=== PATIENT | female | born 1960 | race Asian ===

== ENCOUNTER → 2024-04-13 | Outpatient (CLI) | payer OTHER, SELFPAY ==
[2024-04-13 11:08] LABS: Alanine Aminotransferase 23 U/L (10-49); Albumin, Serum 4.6 gm/dL (3.4-4.8); Alkaline Phosphatase 85 U/L (46-116); Anion Gap 3 (7-16); Aspartate Amino Transferase 19 U/L (0-34); BUN/Creatinine Ratio 21 Ratio (12-20); Bilirubin,Direct 0.2 mg/dL (0.0-0.3); Bilirubin,Total 0.7 mg/dL (0.3-1.2); Blood Urea Nitrogen 15 mg/dL (9-23); Calcium 9.8 mg/dL (8.3-10.6); Carbon Dioxide 29.3 mMol/L (20.0-31.0); Cardiac Risk Estimate 2.7 RATIO (3.7-5.6); Chloride 105 mMol/L (98-107); Cholesterol 152 mg/dL (132-200); Creatinine (Component) 0.7 mg/dL (0.6-1.3); Glucose 104 mg/dL (74-106); HDL Cholesterol 57 mg/dL (40-60); LDL Cholesterol,Calculated 77 mg/dL (0-130); Osmolality,Calculated 274 (275-295); Phosphorous 3.6 mg/dL (2.4-5.1); Potassium 4.2 mMol/L (3.4-5.1); Sodium 137 mMol/L (136-145); Total Protein 7.5 gm/dL (5.7-8.2); Triglycerides 91 mg/dL (30-150); eGFR > 60 See Note
== END | disposition home or self-care (01) ==
PROVIDERS: PCP Internal Medicine; Referring Provider Internal Medicine; Visit Provider Internal Medicine
DX: I10 Essential (primary) hypertension (principal); E78.5 Hyperlipidemia, unspecified
CPT/HCPCS: 36415; 80048; 80061; 80076; 84100

== ENCOUNTER → 2024-05-04 | Outpatient (BNVA) | payer OTHER, SELFPAY | END | disposition home or self-care (01) | PROVIDERS: PCP Internal Medicine; Referring Provider Internal Medicine; Visit Provider Urology | DX: N20.0 Calculus of kidney (principal); N28.1 Cyst of kidney, acquired; Z46.6 Encounter for fitting and adjustment of urinary device | CPT/HCPCS: 99212; G0463 ==

== ENCOUNTER → 2024-09-13 | Outpatient (CLI) | payer BC, SELFPAY ==
[2024-09-13 10:57] LABS: Collection Type, Urine Clean Catch
[2024-09-13 11:32] LABS: Basophils # (Auto) 0.1 Thou/mm3 (0.0-0.2); Basophils % (Auto) 1 % (0-2.5); Eosinophils # (Auto) 0.1 Thou/mm3 (0.0-0.5); Eosinophils % (Auto) 2 % (0-10); Hematocrit 41.6 % (36.0-46.0); Hemoglobin 13.7 g/dL (12.0-16.0); Immature Granulocytes % (Auto) 0 % (0-0); Immature Granulocytes Auto 0.01 Thou/mm3 (0.00-0.00); Lymphocytes # (Auto) 1.8 Thou/mm3 (1.0-4.8); Lymphocytes % (Auto) 32 % (10-50); Mean Corpuscular HGB Conc 32.9 g/dl (31.0-37.0); Mean Corpuscular Hemoglobin 29.5 pg (25.0-35.0); Mean Corpuscular Volume 90 fL (80-100); Monocytes # (Auto) 0.5 Thou/mm3 (0.0-0.8); Monocytes % (Auto) 8 % (0-12); Neutrophils # (Auto) 3.2 Thou/mm3 (1.8-7.7); Neutrophils % (Auto) 57 % (37-80); Nucleated Red Blood Cell % 0 /100 WBC (0); Platelet Count 333 Thou/mm3 (140-440); RDW Standard Deviation 42.2 fL (36.4-46.3); Red Blood Count 4.65 Miln/mm3 (4.00-5.20); White Blood Count 5.6 Thou/mm3 (3.6-11.0)
[2024-09-13 11:37] LABS: Bilirubin,Urine Negative (Negative); Blood,Urine Trace (Negative); Clarity,Urine Clear (Clear/Hazy); Color,Urine Lt-Yellow (Lt Yel-Yel); Glucose, Urine Negative (Negative); Ketones,Urine Negative (Negative); Leukocyte Esterase,Urine Positive (Negative); Nitrite,Urine Negative (Negative); PH,Urine 6.5 (5.0-7.0); Protein,Urine Negative (Neg - Trace); RBC,Urine 5 /hpf (0-3); Specific Gravity,Urine 1.016 (1.001-1.035); Squamous Epithelial Cell,Urine 3 /hpf (0-5); Urobilinogen,Urine Negative mg/dL (0.0-1.0); WBC,Urine 6 /hpf (0-5)
[2024-09-13 11:42] LABS: Glucose Estimated Average 123 mg/dL (80-131); Hemoglobin A1C 5.9 % Hgb (4.8-6.0)
[2024-09-13 11:58] LABS: Alanine Aminotransferase 19 U/L (10-49); Albumin, Serum 4.5 gm/dL (3.4-4.8); Alkaline Phosphatase 81 U/L (46-116); Anion Gap 6 (7-16); Aspartate Amino Transferase 18 U/L (0-34); BUN/Creatinine Ratio 16 Ratio (12-20); Bilirubin,Direct 0.2 mg/dL (0.0-0.3); Bilirubin,Total 0.7 mg/dL (0.3-1.2); Blood Urea Nitrogen 13 mg/dL (9-23); Calcium 9.6 mg/dL (8.3-10.6); Carbon Dioxide 28.9 mMol/L (20.0-31.0); Chloride 105 mMol/L (98-107); Cholesterol 169 mg/dL (132-200); Creatinine (Component) 0.8 mg/dL (0.6-1.3); Glucose 107 mg/dL (74-106); HDL Cholesterol 56 mg/dL (40-60); LDL Cholesterol,Calculated 80 mg/dL (0-130); Osmolality,Calculated 279 (275-295); Phosphorous 3.8 mg/dL (2.4-5.1); Potassium 4.3 mMol/L (3.4-5.1); Sodium 140 mMol/L (136-145); Total Protein 7.5 gm/dL (5.7-8.2); Triglycerides 164 mg/dL (30-150); eGFR > 60 See Note
== END | disposition home or self-care (01) ==
LOC: COPL 10:15
PROVIDERS: PCP Internal Medicine; Referring Provider Internal Medicine; Visit Provider Internal Medicine
DX: N39.0 Urinary tract infection, site not specified (principal); I10 Essential (primary) hypertension; E78.5 Hyperlipidemia, unspecified; R73.03 Prediabetes
CPT/HCPCS: 36415; 80048; 80061; 80069; 80076; 81001; 83036; 84100; 85025

== ENCOUNTER → 2024-12-15 | Outpatient (CLI) | payer BC, SELFPAY ==
--- NOTE | 2024-12-15 13:00 | XR_ITS ---
Examination: Screening digital mammography, bilateral Computer aided detection 3-D breast Tomosynthesis, bilateral Date and time of exam: December 15, 2024 1317 hours Compared to mammograms dating to April 03, 2005 Indication: Screening Technique: Nonmagnified MLO, CC views of the breasts to been obtained, reconstructed from 3-D Tomosynthesis images. R2 computer aided detection program utilized for evaluation of suspicious masses and/or abnormal calcifications. 3-D Tomosynthesis images obtained. Findings: The breasts are heterogeneously dense, which may obscure small masses 5 mm nodule upper outer left breast 5 mm nodule inner upper right breast Impression: BI-RADS Category 2: Benign findings Recommend follow-up spot tomographic films 5 mm nodule upper outer left breast and 5 mm nodule inner upper right breast as well as bilateral breast sonography to complete the workup
--- NOTE | 2024-12-15 13:15 | XR_ITS ---
Examination: Bone densitometry Date and time of exam:December 15, 2024 1335 hours INDICATIONS: Hysterectomy age 34 vitamin D 2 weeks Technique: Lumbar spine and hip total bone mineralization values of an calculated. Peak reference and age match control results have been displayed. Findings: Lumbar spine total bone mineralization is1.064 gm/cm2. This is 0.2 standard deviations above peak reference. This is 1.8 standard deviations above age-matched controls. Hip total bone mineralization is 0.821 gm/cm2 This is 1.0 standard deviations below peak reference. This is 0.2 standard deviations above age-matched controls Impression: There is normal mineralization based on lumbar spine measurements. There is osteopenia based on hip measurements Lumbar mineralization is decreased 4.1% compared with February 11, 2016 Hip mineralization is decreased 6.4% compared with 02/11/2016
== END | disposition home or self-care (01) ==
PROVIDERS: PCP Internal Medicine; Referring Provider Internal Medicine; Visit Provider Internal Medicine
DX: Z12.31 Encounter for screening mammogram for malignant neoplasm of breast (principal); R92.323 Mammographic fibroglandular density, bilateral breasts; N63.21 Unspecified lump in the left breast, upper outer quadrant; N63.12 Unspecified lump in the right breast, upper inner quadrant; M85.89 Other specified disorders of bone density and structure, multiple sites
CPT/HCPCS: 77063; 77067; 77080

== ENCOUNTER → 2025-01-10 | Outpatient (CLI) | payer BC, SELFPAY ==
--- NOTE | 2025-01-10 13:00 | XR_ITS ---
Examination: Breast ultrasound complete, bilateral Date and time of exam: January 10, 2025 1337 hours INDICATIONS: Mammogram December 15, 2024 5 mm nodule upper left breast 5 mm nodule inner upper right breast Technique: Real-time grayscale ultrasonographic imaging bilateral breasts, including all 4 quadrants as well as nipple retroareolar and axillary regions. Findings: Sonographic images right breast 12:00 nodule lobular margins 6 x 5 mm 7:00 nodule lobular margins 10 x 9 mm Sonographic images left breast No cystic or solid mass IMPRESSION: BI-RADS Category 3: Probably benign findings. Recommend 1 additional 6 month right breast sonogram follow-up to document stability of right breast nodules described above
--- NOTE | 2025-01-10 14:15 | XR_ITS ---
Examination: Diagnostic digital mammography, bilateral Computer aided detection 3-D breast Tomosynthesis, bilateral Date and time of exam: January 10, 2025 1401 hours INDICATIONS: Mammogram December 15, 2024 5 mm nodule upper outer left breast 5 mm nodule inner upper right breast Technique: Nonmagnified MLO, CC views of the breasts to been obtained, reconstructed from 3-D Tomosynthesis images. R2 computer aided detection program utilized for evaluation of suspicious masses and/or abnormal calcifications. 3-D Tomosynthesis images obtained. Findings: The breasts are heterogeneously dense, which may obscure small masses Circumscribed nodule 12:00 position right breast 6 mm No suspicious nodule confirm left breast on the spot compression views Impression: BI-RADS Category 3: Probably benign findings One additional 6 month right mammogram follow-up is needed to document stability of 12:00 nodule right breast Please see the right and left breast sonogram report and recommendations today.
== END | disposition home or self-care (01) ==
PROVIDERS: PCP Internal Medicine; Referring Provider Internal Medicine; Visit Provider Internal Medicine
DX: R92.333 Mammographic heterogeneous density, bilateral breasts (principal); N63.15 Unspecified lump in the right breast, overlapping quadrants; N63.13 Unspecified lump in the right breast, lower outer quadrant
CPT/HCPCS: 76641; 77062; 77066; G0279

== ENCOUNTER 2025-05-05 05:22 | Emergency (ER) | payer BC, SELFPAY ==
[2025-05-05 05:22] VITALS: BMI 29.0
[2025-05-05 05:29] VITALS: BP 191/81; PULSE 95; RESP 18; TEMP 36.9; O2SAT 97
--- NOTE | 2025-05-05 05:32 | XR_ITS ---
Examination: CT abdomen and pelvis without contrast. Coronal 3-D reconstructions. Sagittal 2-D reconstructions. Date and time of exam: May 05, 2025, 0702 hours INDICATIONS: Bilateral flank pain urinary retention today, history kidney stones COMPARISON: 02/15/2023 CTDI: vol (mGy): 9.67 DLP: (mGycm): 546 Technique: Axial images of the abdomen have been obtained, 3 mm slice thickness Intravenous contrast material has not been administered. Low dose protocols were performed. One or more of the following dose reduction techniques were used; automated exposure control, adjustment of the mA and/or KV according to patient size, use of iterative reconstruction technique. 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
--- NOTE | 2025-05-05 05:32 | PD.EDRME ---
Rapid Medical Screening Exam E Arrival date/time: 05/05/25 05:22 65F with history of kidney stones presents to ED with 2 days of dysuria and 1 day of urinary retention. Patient was here 2 years ago with similar episode and the retention was due to kidney stones. Patient states this feels the same. Chief Complaint: Urogenital-Female Vital signs: Vital Signs Temperature 98.4 F 05/05/25 05:29 Pulse Rate 95 05/05/25 05:29 Respiratory Rate 18 05/05/25 05:29 Blood Pressure 191/81 H 05/05/25 05:29 Pulse Oximetry (%) 97 05/05/25 05:29 Oxygen Delivery Method Room Air 05/05/25 05:29 Exam: Very uncomfortable Clinical Impression: kidney stone vs UTI/pyelo vs constipation vs bladder/pelvic mass vs urinary retention
[2025-05-05] MEDS: TAMSULOSIN HCL 0.4 MG CAPSULE PO (06:00)
[2025-05-05 06:03] VITALS: BP 153/78
[2025-05-05 06:06] LABS: Collection Type, Urine Catheter
[2025-05-05 06:10] LABS: Basophils # (Auto) 0.1 Thou/mm3 (0.0-0.2); Basophils % (Auto) 1 % (0-2.5); Eosinophils # (Auto) 0.1 Thou/mm3 (0.0-0.5); Eosinophils % (Auto) 1 % (0-10); Hematocrit 38.9 % (36.0-46.0); Hemoglobin 13.0 g/dL (12.0-16.0); Immature Granulocytes Auto 0.02 Thou/mm3 (0.00-0.00); Lymphocytes # (Auto) 1.3 Thou/mm3 (1.0-4.8); Lymphocytes % (Auto) 18 % (10-50); Mean Corpuscular HGB Conc 33.4 g/dl (31.0-37.0); Mean Corpuscular Hemoglobin 30.0 pg (25.0-35.0); Mean Corpuscular Volume 90 fL (80-100); Monocytes # (Auto) 0.4 Thou/mm3 (0.0-0.8); Monocytes % (Auto) 5 % (0-12); Neutrophils # (Auto) 5.7 Thou/mm3 (1.8-7.7); Neutrophils % (Auto) 75 % (37-80); Nucleated Red Blood Cell # 0.00 Thou/mm3 (0.00-0.00); Nucleated Red Blood Cell % 0 /100 WBC (0); Platelet Count 282 Thou/mm3 (140-440); RDW Standard Deviation 41.3 fL (36.4-46.3); Red Blood Count 4.34 Miln/mm3 (4.00-5.20); White Blood Count 7.6 Thou/mm3 (3.6-11.0)
[2025-05-05 06:13] LABS: Bilirubin,Urine Negative (Negative); Blood,Urine Trace (Negative); Clarity,Urine Clear (Clear/Hazy); Color,Urine Colorless (Lt Yel-Yel); Culture Indicated,Urine Not Indicated; Glucose, Urine Negative (Negative); Ketones,Urine Negative (Negative); Leukocyte Esterase,Urine Negative (Negative); Nitrite,Urine Negative (Negative); PH,Urine 7.0 (5.0-7.0); Protein,Urine Negative (Neg - Trace); RBC,Urine 2 /hpf (0-3); Specific Gravity,Urine 1.006 (1.001-1.035); Squamous Epithelial Cell,Urine < 1 /hpf (0-5); Urobilinogen,Urine Negative mg/dL (0.0-1.0); WBC,Urine < 1 /hpf (0-5)
[2025-05-05 06:19] LABS: Amphetamine/Methamp Scrn,U Negative (Negative); Barbiturate Screen,Urine Negative (Negative); Benzodiazepines Screen,Urine Negative (Negative); Benzoylecgonine Screen, Ur Negative (Negative); Fentanyl Screen,Urine Negative (Negative); Opiate Screen,Urine Negative (Negative); THC Screen,Urine Negative (Negative)
--- NOTE | 2025-05-05 06:21 | PD.EDFMALE ---
ED Female Urogenital RME/HPI General Chief complaint: Urogenital-Female Stated complaint: URINE RETENTION Time Seen by Provider: 05/05/25 06:19 Arrival date/time: 05/05/25 05:22 Limitations: no limitations RME / HPI RME / HPI Narrative: 05/05/25 05:22 65F with history of kidney stones presents to ED with 2 days of dysuria and 1 day of urinary retention. Patient was here 2 years ago with similar episode and the retention was due to kidney stones. Patient states this feels the same. no hx of Dm. Admits in the past was aware of her 5 mm stone on the right side but states never followed up for lithotripsy or procedure from 2 years ago. No fever at this time. Exam: Very uncomfortable Impression: kidney stone vs UTI/pyelo vs constipation vs bladder/pelvic mass vs urinary retention Related Data Home Medications ?Medication ?Instructions ?Recorded ?Confirmed tamsulosin 0.4 mg capsule 0.4 mg PO QHS 02/18/23 05/04/24 amlodipine 5 mg tablet 5 mg PO QDAY 05/04/24 05/04/24 simvastatin 20 mg tablet 20 mg PO QPM 05/04/24 05/04/24 Previous Rx's ?Medication ?Instructions ?Recorded ciprofloxacin HCl 500 mg tablet 500 mg PO Q12H 10 days #20 tabs 05/05/25 (Cipro) tamsulosin 0.4 mg capsule 0.4 mg PO QDAY #30 caps 05/05/25 Allergies Allergy/AdvReac Type Severity Reaction Status Date / Time No Known Allergies Allergy Verified 05/05/25 05:22 Review of Systems Review of Systems Systems Reviewed: All systems reviewed, normal except as documented Constitutional Constitutional: Denies fever(s) Gastrointestinal Gastrointestinal: Reports as per HPI Genitourinary Genitourinary: Reports as per HPI ED Exam General Limitations: Present no limitations General appearance: Present alert and in no apparent distress Eye Eye exam: Present normal appearance, PERRL and EOMI Respiratory Respiratory exam: Present normal lung sounds bilaterally Cardiovascular Cardiovascular exam: Present regular rate, normal rhythm and normal heart sounds Abdominal Exam Abdominal exam: Present soft, tenderness (Suprapubic) and normal bowel sounds Extremities Exam Extremities exam: Present normal inspection and full ROM Back Exam Back exam: Present normal inspection and full ROM Psychiatric Psychiatric exam: Present normal affect and normal mood Skin Skin exam: Present warm, dry, intact and normal color Course Quality Measures none Orders Category Date Time Status Catheter [Urinary Catheter] QS Care 05/05/25 05:29 Completed Dickens to Leg Bag Routine Care 05/05/25 05:[address] abdomen pelvis wo con Stat Exams 05/05/25 05:32 Completed CBC Stat Lab 05/05/25 05:50 Completed CMP [Comprehensive Metabolic Panel] Stat Lab 05/05/25 05:50 Completed Drug Screen,Urine Stat Lab 05/05/25 05:43 Completed Urinalysis, C/S if Indicated Stat Lab 05/05/25 05:43 Completed Tamsulosin HCl [Flomax] Med 05/05/25 05:32 Discontinued 0.4 mg PO X1 ONE cefTRIAXone [Rocephin] 1,000 mg Med 05/05/25 07:41 Discontinued Lidocaine 1% Pf Vial 5ml [Xylocaine 1% 5 ml] 2.1 ml IM X1 Vital Signs Vital signs: Vital Signs Temperature 98.4 F 05/05/25 05:29 Pulse Rate 95 05/05/25 05:29 Respiratory Rate 18 05/05/25 05:29 Blood Pressure 191/81 H 05/05/25 05:29 Pulse Oximetry (%) 97 05/05/25 05:29 Oxygen Delivery Method Room Air 05/05/25 05:29 Urogenital - Female MDM Narrative MDM Narrative:: 65-year-old female with history of recurrent urinary retention episodes was lost to follow-up for urology. Today's workup shows bilateral stones will treat with ABX and Flomax. Opted to leave urinary catheter in advised follow-up with PCP for removal and referral furl back to urology return to ER symptoms worsen Patient data External records reviewed:: [facility] previous records Clinical information provided by:: patient and family Social determinants that could affect healthcare access:: other (specify) Patient has the following chronic illnesses:: History of kidney stones How is presenting disease/condition affected by chronic disease/condition?: caused by Evaluation data The following diagnostics were reviewed and interpreted by me:: lab results and radiology exam(s) Lab and/or radiology exams considered but not ordered:: All imaging considered was ordered chest x-ray not warranted given complaint of urinary retention Interpretation Summary: CBC, CMP, UA all within normal limits except UA does show hematuria consistent with stone findings no obvious UTI however will treat for such CT shows same 5 mm stone in the right kidney compared to 2 years ago and 1 mm stone on the left side however no hydro or bladder masses Medications / Prescriptions Medications or Prescriptions considered but not ordered:: narcotics were considered Medication administrations:: Medication Administration History Discontinued Medications Ceftriaxone Sodium 1,000 mg/ (Lidocaine HCl 2.1 ml) 0 mg IM X1 ONE Stop: 05/05/25 07:42 Last Admin: 05/05/25 07:51 Dose: 1,000 mg Documented By: LT Tamsulosin HCl (Tamsulosin Hcl 0.4 Mg Capsule) 0.4 mg PO X1 ONE Stop: 05/05/25 05:33 Last Admin: 05/05/25 06:00 Dose: 0.4 mg Documented By: IRMA see above Consultations Consultation(s) initiated? (list below): No Diagnosis Urogenital Female Differential Diagnosis: urinary tract infection and other (Pelvic mass, interstitial cystitis, pyelonephritis, kidney stone.) Most likely diagnosis given after review of the tests above:: Urinary retention UTI Undescended left stone Admission Indicated Admission indicated?: not indicated Admission Request Was there a request for admission?: No Disposition Plan Disposition Plan: Discharge Discharge Attestation Discharge Attestation: The patient and all family members were given an opportunity to ask questions and understood the discharge instructions. Discharge instructions specifically effects, indications for sooner follow up or return to the emergency department, and the expected course of current diagnosis. Patient condition: Stable Discharge Plan Plan Patient Disposition: HOME (Self Care) Discharge Disposition comment: fu with pcp in 2-3days Prescriptions/Referrals Prescriptions/Med Rec: New ciprofloxacin HCl [Cipro] 500 mg tablet 500 mg PO Q12H 10 Days Qty: 20 0RF tamsulosin 0.4 mg capsule 0.4 mg PO QDAY Qty: 30 0RF No Action tamsulosin 0.4 mg capsule 0.4 mg PO QHS amlodipine 5 mg tablet 5 mg PO QDAY simvastatin 20 mg tablet 20 mg PO QPM Problem List Clinical Impression: Urinary tract infection, Acute on chronic urinary retention, Bilateral kidney stones Patient/Caregiver Discharge Instructions Education Materials: ED Kidney Stone Undescended No ..., ED Urinary Retention, Female Print Language: Divehi Stand Alone Forms: [place] Award Info., Patient Portal Info Letter PA/RUG [employer] HAND Supervising Physician PA/GABRIEL Supervising Physician: Dr. sam
[2025-05-05 06:30] LABS: Alanine Aminotransferase 19 U/L (10-49); Albumin, Serum 4.9 gm/dL (3.4-4.8); Albumin/Globulin Ratio 1.6 (1.2-2.2); Alkaline Phosphatase 82 U/L (46-116); Anion Gap 12 (7-16); Aspartate Amino Transferase 19 U/L (0-34); BUN/Creatinine Ratio 15 Ratio (12-20); Bilirubin,Total 0.5 mg/dL (0.3-1.2); Blood Urea Nitrogen 9 mg/dL (9-23); Calcium 9.4 mg/dL (8.3-10.6); Calcium (Corrected) 9.4 mg/dL (8.5-10.1); Carbon Dioxide 25.4 mMol/L (20.0-31.0); Chloride 101 mMol/L (98-107); Creatinine (Component) 0.6 mg/dL (0.6-1.3); Estimated Creatinine Clearance 102.0 mL/min (>60); Globulin 3.0 gm/dL (2.3-3.5); Glucose 136 mg/dL (74-106); Osmolality,Calculated 276 (275-295); Potassium 3.5 mMol/L (3.4-5.1); Sodium 138 mMol/L (136-145); Total Protein 7.9 gm/dL (5.7-8.2); eGFR > 60 See Note
== END 2025-05-05 08:00 | disposition home or self-care (01) ==
LOC: SERX 08:05
PROVIDERS: Physician Assistant; Emergency Provider Emergency Medicine; PCP Emergency Medicine
DX: N39.0 Urinary tract infection, site not specified (principal); N20.0 Calculus of kidney
CPT/HCPCS: 36415; 51702; 74176; 80053; 80307; 81001; 85025; 96372; 99284; A4314; J0696; J3490; A9270